=== PATIENT | female | born 1995 | race Caucasian/White ===

== ENCOUNTER 2017-03-31 12:31 | Emergency (ER) | payer SELFPAY ==
[2017-03-31 12:44] VITALS: RESP 16; TEMP 97.7; O2SAT 98
[2017-03-31] MEDS ORDERED: IBUPROFEN 600 MG TAB PO ONE (13:30)
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
[2017-03-31 14:30] VITALS: BP 122/65; PULSE 88
== END 2017-03-31 14:45 | disposition home or self-care (01) ==
DX: S00.83XA Contusion of other part of head, initial encounter (principal); Y04.0XXA Assault by unarmed brawl or fight, initial encounter